=== PATIENT | female | born 1975 | race Caucasian/White ===

== ENCOUNTER 2022-09-19 08:13 | Emergency (ER) | payer OTHER, SELFPAY ==
[2022-09-19 08:26] VITALS: BP 146/82; PULSE 66; RESP 16; TEMP 36.8; O2SAT 99
--- NOTE | 2022-09-19 08:28 | ED.BACK ---
HPI - Back Pain/Injury General Chief Complaint: Back Pain/Injury Stated Complaint: Back Pain Time Seen by Provider: 09/19/22 08:30 Source: patient Mode of arrival: ambulatory Limitations: no limitations History of Present Illness HPI Narrative: Monica is a 47-year-old female patient presenting to the clinic today with complaints of left lower back pain x1 day. She reports she was bending over to buckle her son into the car seat yesterday and felt a pop in her back with and pain. She denies any radiation of pain down her legs. Does have pain with sitting and also when changing positions. Reports the pain is a sharp and aching pain. Rates pain currently at 9/10. Denies any saddle anesthesia or loss of bowel or bladder. She has not taken anything for pain this morning. Related Data Home Medications Medication Instructions Recorded Confirmed erenumab-aooe 140 mg/mL mg subcut 09/19/22 subcutaneous auto-injector (Aimovig Autoinjector) pantoprazole 20 mg tablet,delayed mg PO 09/19/22 release sumatriptan succinate 100 mg tablet mg PO 09/19/22 Allergies Allergy/AdvReac Type Severity Reaction Status Date / Time No Known Allergies Allergy Unverified 06/17/13 13:55 Review of Systems Review of Systems: Pertinent positives per HPI. Patient denies any fever, chills, rash, headache, visual changes, dizziness, cough, runny nose, sore throat, shortness of breath, chest pain, palpitations, nausea, vomiting, diarrhea, constipation, abdominal pain, or any urinary issues. PMFSH Comments At the time of my signature, I reviewed and agree with the nursing past medical, surgical, social, and family history. There is no relevant family history pertinent to the patient complaint. Exam Narrative: General: Well-developed, well nourished, in no apparent distress Head: Normocephalic, atraumatic. Cardio: Regular rate and rhythm, s1 and s2 normal, no murmur appreciated. Resp: Clear to auscultation bilaterally, no rhonchi, rales, wheezing or rubs. Musculoskeletal: No deformity, -tender to palpation over the left musculature of the low back, nontender to palpation over the lumbar spine or thoracic spine, straight leg test positive at approximately 70? on the left, bilateral lower muscle strength strong and equal, negative foot drop, pain with flexion and extension of the low back, grossly normal range of motion, peripheral pulse strong, no edema, no cyanosis, cautious gait and station Course Course Emergency Course: Portions of this record may have been created with voice recognition software. Level of Care: Express Care Visit Vital Signs Vital signs: Vital Signs Temperature 36.8 C 09/19/22 08:26 Pulse Rate 66 09/19/22 08:26 Respiratory Rate 16 09/19/22 08:26 Blood Pressure 146/82 H 09/19/22 08:26 Pulse Oximetry 99 09/19/22 08:26 Oxygen Delivery Room Air 09/19/22 08:26 Temperature 36.8 C 09/19/22 08:26 Pulse Rate 66 09/19/22 08:26 Respiratory Rate 16 09/19/22 08:26 Blood Pressure 146/82 H 09/19/22 08:26 Pulse Oximetry 99 09/19/22 08:26 Oxygen Delivery Room Air 09/19/22 08:26 Vital signs reviewed MDM - Back Pain/Injury MDM Narrative Medical decision making narrative: At the time of visit patient is resting comfortably on the exam table. I suspect patient has a low back strain. Will send in prescription for some naproxen and Flexeril. Sedation precautions were reviewed with the patient she voiced understanding. Work note given for 2 days. Supportive measures were discussed with the patient she voiced understanding of discharge instructions and agrees to treatment plan. Patient has not taken any medication this morning for pain so Toradol 60 mg IM was given Differential Diagnosis Differential diagnosis: Likely lumbar radiculopathy, sciatica, strain of lumbar region and other (Disc herniation) Discharge Plan Discharge Clinical Impression: Low back pain, Strain
[2022-09-19] MEDS: KETOROLAC (*BKC) 60 MG/2 ML VIAL IM (08:34)
== END 2022-09-19 09:04 | disposition home or self-care (01) ==
PROVIDERS: Emergency Provider Nurse Practitioner Family
DX: S39.012A Strain of muscle, fascia and tendon of lower back, initial encounter (principal); X50.9XXA Other and unspecified overexertion or strenuous movements or postures, initial encounter; K21.9 Gastro-esophageal reflux disease without esophagitis
CPT/HCPCS: 96372; 99213; G0463; J1885

== ENCOUNTER 2022-11-25 08:22 | Emergency (ER) | payer OTHER, SELFPAY ==
--- NOTE | 2022-11-25 08:33 | ED.GENADULT ---
HPI - General Adult General Chief complaint: Upper Respiratory Infection Stated complaint: Cough/Headache/Dental Pain Time Seen by Provider: 11/25/22 08:33 Source: patient Mode of arrival: ambulatory Limitations: no limitations History of Present Illness HPI narrative: 47-year-old female patient presents to [facility] with complaints of URI symptoms and jaw and facial pain. Patient states she started having a cough a couple of days ago that has developed into a chronic dry cough, feeling achy but denies chills or fevers. Denies any chest pain or shortness of breath. Patient recently was diagnosed with type 2 diabetes and most recent A1c was 6.3. Patient states she was recently put on metformin. Patient states she does have history of chronic migraines and has been trying to treat an ongoing headache since the symptoms started. Patient states she is only treated herself with high doses of vitamin-C denies any other [id number] medications for her symptoms. Patient states she has also developed a rash on her right-sided abdominal area. Patient states it does not itch or bother her. Related Data Home Medications Medication Instructions Recorded Confirmed erenumab-aooe 140 mg/mL 140 mg subcut DIRECTED 09/19/22 11/25/22 subcutaneous auto-injector (Aimovig Autoinjector) pantoprazole 20 mg tablet,delayed 20 mg PO DAILY 09/19/22 11/25/22 release sumatriptan succinate 100 mg tablet 100 mg PO DAILY 09/19/22 11/25/22 levothyroxine 175 mcg tablet 175 mcg PO DAILY 11/25/22 11/25/22 metformin 1,000 mg tablet 1,000 mg PO BID 11/25/22 11/25/22 trazodone 150 mg tablet,extended 150 mg PO DAILY 11/25/22 11/25/22 release 24 hr Allergies Allergy/AdvReac Type Severity Reaction Status Date / Time No Known Allergies Allergy Verified 11/25/22 08:36 Review of Systems Review of Systems: CONSTITUTIONAL: Denies fever, chills, or sweats. Positive body aches EYES: Denies visual changes, redness, or discharge. ENT: Denies rhinorrhea, positive congestion, sore throat, or otalgia. CARDIOVASCULAR: Denies chest pain, palpitations, or edema. RESPIRATORY: Positive cough, denies dyspnea. GASTROINTESTINAL: Denies abdominal pain, nausea, vomiting, or diarrhea. GENITOURINARY: Denies dysuria or hematuria. SKIN: Positive rash, denies itching. MUSCULOSKELETAL: Denies back pain, joint pain, or myalgia. NEUROLOGIC: Positive headache, denies numbness, or weakness. PSYCHIATRIC: Denies anxiety or depression. [facility] Past Medical History Medical History (Updated 11/25/22 @ 08:56 by DARSHAN Maddox) Graves disease Hypothyroidism Type 2 diabetes mellitus Surgical History Surgical History (Updated 11/25/22 @ 08:35 by DARSHAN Maddox) H/O: hysterectomy History of appendectomy Comments At the time of my signature I agree with nursing past medical history, surgical, social, and family history. There is no relevant family history pertinent to the presenting complaint. Exam Narrative: GENERAL: Well-appearing, well-nourished, and in no acute distress. HEAD: Normocephalic, atraumatic. EYES: PERRLA and EOMI. ENT: Nares with erythema and edema noted bilateral, no rhinorrhea or epistaxis. Mucous membranes moist. Posterior pharynx with no erythema, tonsillar enlargement, exudates or lesions present. Bilateral TMs with slight erythema but no bulging patient complained of pain. NECK: Supple. No lymphadenopathy CHEST: Clear to auscultation. No respiratory distress. Patient able talk in clear complete sentences. No tripoding noted. HEART: Regular rate and rhythm. No murmur heard. Normal peripheral pulses. ABDOMEN: Soft, nontender, nondistended, normal active bowel sounds. EXTREMITIES: Normal range of motion. No edema. SKIN: Warm, dry, patient has a fine exanthem type rash noted to the right quadrant of the abdomen NEURO: No focal deficits. Alert and oriented x3. Course Course Level of Care: Express Care Visit Reevalua
[2022-11-25 08:35] VITALS: BP 124/88; PULSE 72; RESP 16; TEMP 36.9; O2SAT 100
== END 2022-11-25 09:05 | disposition home or self-care (01) ==
PROVIDERS: Emergency Provider Nurse Practitioner Family
DX: J06.9 Acute upper respiratory infection, unspecified (principal); Z20.822 Contact with and (suspected) exposure to COVID-19; E03.9 Hypothyroidism, unspecified; E05.00 Thyrotoxicosis with diffuse goiter without thyrotoxic crisis or storm; E11.9 Type 2 diabetes mellitus without complications
CPT/HCPCS: 87081; 87426; 87880; 99213; C9803; G0463

== ENCOUNTER 2024-02-05 10:07 | Emergency (ER) | payer OTHER, SELFPAY ==
[2024-02-05 10:15] VITALS: BP 122/79; PULSE 89; RESP 17; TEMP 36.7; O2SAT 100
--- NOTE | 2024-02-05 10:17 | ED.URI ---
HPI - URI/Sore Throat General Chief Complaint: Upper Respiratory Infection Stated Complaint: Sore Throat Time Seen by Provider: 02/05/24 10:17 Source: patient, RN notes reviewed and old records reviewed Mode of arrival: ambulatory Limitations: no limitations History of Present Illness HPI Narrative: Patient presents with complaints of 2 day history of low-grade fever, sore throat, hoarse voice. She reports that pain is worse on the right side than the left. Pain radiates to the ears. Pain aggravated by swallowing. Has occasional cough, denies any runny nose. No shortness of breath. Has not needed any medications for her symptoms. No other concerns or complaints today Related Data Home Medications Medication Instructions Recorded Confirmed erenumab-aooe 140 mg/mL 140 mg subcut DIRECTED 09/19/22 02/05/24 subcutaneous auto-injector (Aimovig Autoinjector) sumatriptan succinate 100 mg tablet 100 mg PO DAILY 09/19/22 02/05/24 levothyroxine 175 mcg tablet 175 mcg PO DAILY 11/25/22 02/05/24 metformin 1,000 mg tablet 1,000 mg PO BID 11/25/22 02/05/24 trazodone 150 mg tablet,extended 150 mg PO DAILY 11/25/22 02/05/24 release 24 hr Allergies Allergy/AdvReac Type Severity Reaction Status Date / Time No Known Allergies Allergy Verified 02/05/24 10:12 Review of Systems Review of Systems: All systems reviewed & are unremarkable except as noted in HPI and below Constitutional: Constitutional: Reports no additional constitutional complaints and Reports fever(s) ENT: Reports system reviewed and no additional complaints, except as documented, Reports change in voice and Reports sore throat Cardiovascular: Cardiovascular: Reports no additional cardiovascular complaints Respiratory: Respiratory: Reports no additional respiratory complaints and Reports cough Gastrointestinal: Gastrointestinal: Reports no additional gastrointestinal complaints [facility] Past Medical History Medical History (Updated 02/05/24 @ 10:34 by Lisa Callejas APRN) Graves disease Hypothyroidism Type 2 diabetes mellitus Surgical History Surgical History H/O: hysterectomy History of appendectomy Comments At the time of my signature, I reviewed and agree with the nursing past medical, surgical, social, and family history. There is no relevant family history pertinent to the patient complaint. Exam Const: General: cooperative, no acute distress, alert and awake Orientation/consciousness: oriented to person, oriented to place and oriented to time HENMT: Head: normal to inspection Ears: TM's normal bilaterally Mouth: Yes moist mucous membranes Throat: abnormal tonsil bilateral exudates and hypertrophy 2+ and posterior oropharynx abnormal erythema Resp: Effort & Inspection: normal respiratory effort and able to speak in complete sentences Auscultation: clear to auscultation bilaterally, no crackles, no rales, no rhonchi and no wheezes Cardio: Palpation: normal PMI Rate: regular rate Rhythm: regular rhythm Heart sounds: S1 normal heart sound present and S2 normal heart sound present Neuro: General: oriented to person, oriented to place and oriented to time Cranial nerves: Yes CN's II-XII intact bilaterally Psych: Appearance: grossly normal Thought process: Normal thought process present Insight: Good insight present (Psych) Judgement: Good judgement present (Psych) Course Course Level of Care: Express Care Visit Vital Signs Vital signs: Vital Signs Temperature 98.1 F 02/05/24 10:15 Pulse Rate 89 02/05/24 10:15 Respiratory Rate 17 02/05/24 10:15 Blood Pressure 122/79 02/05/24 10:15 Pulse Oximetry 100 02/05/24 10:15 Oxygen Delivery Room Air 02/05/24 10:15 Temperature 98.1 F 02/05/24 10:15 Pulse Rate 89 02/05/24 10:15 Respiratory Rate 17 02/05/24 10:15 Blood Pressure 122/79 02/05/24 10:15 Pulse Oximetry 100 02/05/24 10:15 Oxygen
[2024-02-05 10:35] LABS: EDINFLUASCREEN Negative (Negative); EDINFLUBSCREEN Negative (Negative)
[2024-02-05 10:36] LABS: EDCOVIDSCREEN Negative (Negative)
[2024-02-05 10:36] LABS: EDSTREPNEGPOS1 Positive (Negative)
== END 2024-02-05 10:50 | disposition home or self-care (01) ==
PROVIDERS: Emergency Provider Nurse Practitioner Family
DX: J02.0 Streptococcal pharyngitis (principal); Z20.822 Contact with and (suspected) exposure to COVID-19; E05.00 Thyrotoxicosis with diffuse goiter without thyrotoxic crisis or storm; E03.9 Hypothyroidism, unspecified; E11.9 Type 2 diabetes mellitus without complications
CPT/HCPCS: 87426; 87804; 87880; 99213; G0463

== ENCOUNTER 2024-03-05 10:18 | Emergency (ER) | payer OTHER, SELFPAY ==
--- NOTE | 2024-03-05 10:20 | ECG_ITS ---
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
--- NOTE | 2024-03-05 10:20 | ED.DIZZY ---
HPI - Dizziness General Chief Complaint: Chest Pain Stated Complaint: High Heart Rate/Dizziness Time Seen by Provider: 03/05/24 10:19 Source: patient Mode of arrival: ambulatory Limitations: no limitations History of Present Illness HPI Narrative: Monica is a 48-year-old female patient presenting to the clinic today with complaints of high heart rate, dizziness, shortness of breath, palpitations, and chest heaviness. She reports the symptoms started 1-1.5 hours ago. States that she began feeling short of breath and noticed some palpitations. History hypothyroid, type 2 diabetes, and obesity. Denies any cardiac or pulmonary history. Highest heart rate according to the patient was 109 Related Data Home Medications Medication Instructions Recorded Confirmed erenumab-aooe 140 mg/mL 140 mg subcut DIRECTED 09/19/22 03/05/24 subcutaneous auto-injector (Aimovig Autoinjector) levothyroxine 175 mcg tablet 175 mcg PO DAILY 11/25/22 03/05/24 metformin 1,000 mg tablet 1,000 mg PO BID 11/25/22 03/05/24 trazodone 150 mg tablet,extended 150 mg PO DAILY 11/25/22 03/05/24 release 24 hr Allergies Allergy/AdvReac Type Severity Reaction Status Date / Time No Known Allergies Allergy Verified 03/05/24 10:22 Review of Systems Review of Systems: Pertinent positives per HPI. Patient denies any fever, chills, rash, headache, visual changes, dizziness, cough, runny nose, sore throat, nausea, vomiting, diarrhea, constipation, abdominal pain, or any urinary issues. PMFSH Past Medical History Medical History Graves disease Hypothyroidism Type 2 diabetes mellitus Surgical History Surgical History H/O: hysterectomy History of appendectomy Comments At the time of my signature, I reviewed and agree with the nursing past medical, surgical, social, and family history. There is no relevant family history pertinent to the patient complaint. Exam Narrative: General: Well-developed, well nourished, in no apparent distress Head: Normocephalic, atraumatic. Cardio: Regular rate and rhythm, s1 and s2 normal, no murmur appreciated. Resp: Clear to auscultation bilaterally, no rhonchi, rales, wheezing or rubs. Extremities: No deformity, no edema, no cyanosis, capillary refill less than 2 seconds, peripheral pulses palpable and strong. Integumentary: [place], warm, and dry, intact without lesion, no rashes. Course Course Emergency Course: Portions of this record may have been created with voice recognition software. Level of Care: Express Care Visit Vital Signs Vital signs: Vital signs reviewed Transfer Transfered to: [place] Transportation: ALS Transfer rationale: Chest pain, palpitations, sob, dizziness Accepting physician: Dr. Russ Transfer comments: Transported by [facility]. MDM - Dizziness MDM Narrative Medical decision making narrative: At the time of visit patient is resting comfortably on the exam table. Patient appears to be nontoxic. EKG: EKG shows sinus rhythm with heart rate of 72 beats per minute. Reading states moderate T-wave abnormality consider anterior ischemia Plan: Recommend transfer to the ER via EMS for further evaluation. Discussed this with the patient she agrees to transfer to the ER. Would like to be transfer to [place] ER. Contacted Dr. Russ at [place] ER-report was given for continuity of care and he accepts patient for transfer Differential Diagnosis Differential diagnosis: Likely adverse reaction to drug, benign paroxysmal positional vertigo, orthostatic hypotension, cerebrovascular accident, acute vestibular neuronitis, transient cerebral ischemia and other (non STEMI, STEMI, PE, dysrhythmia, pneumonia, COVID) ECG Data EKG #1: Attestation: I personally reviewed and interpreted this ECG as follows: ECG completion date: 03/05/24 ECG completion time: 10:31 Prior ECG tracings: not available for review Interpretation: EKG shows sinus rhythm with heart rate of 72 beats per minute. No ST elevation or depression noted. Reading- moderate T-wave abnormality with possible anterior ischemia. NV interval is 168 milliseconds, QRS duration 92 milliseconds, QT-QTC is 376-401 milliseconds, P-R-T axis 33 0 42 Discharge Plan Discharge Clinical Impression: Palpitations, Shortness of breath, Dizziness Chest pain Qualifiers: Chest pain type: unspecified Qualified Code(s): R07.9 - Chest pain, unspecified Patient Disposition: Acute Care Hospital Condition: Guarded Prognosis Prescriptions: No Action Aimovig Autoinjector 140 mg/mL auto-injector 140 mg SUBCUT DIRECTED levothyroxine 175 mcg Tablet 175 mcg PO DAILY metformin 1,000 mg Tablet 1,000 mg PO BID trazodone 150 mg Tablet Extended Release 24 Hr 150 mg PO DAILY Follow-up/Referrals: UNKNOWN,DOCTOR [Non-Staff] - Time of Disposition: 10:43 Quality NIHSS Nursing Documentation ED NIHSS nursing documentation: reviewed/agree
[2024-03-05 10:25] VITALS: BP 116/82; PULSE 87; RESP 20; TEMP 35.9; O2SAT 100
== END 2024-03-05 10:47 | disposition short-term general hospital (02) ==
PROVIDERS: Emergency Provider Nurse Practitioner Family
DX: R00.2 Palpitations (principal); R06.02 Shortness of breath; R42 Dizziness and giddiness; R07.9 Chest pain, unspecified; E05.00 Thyrotoxicosis with diffuse goiter without thyrotoxic crisis or storm; E03.9 Hypothyroidism, unspecified; E11.9 Type 2 diabetes mellitus without complications; E66.9 Obesity, unspecified; Z79.84 Long term (current) use of oral hypoglycemic drugs; Z68.35 Body mass index [BMI] 35.0-35.9, adult
CPT/HCPCS: 93005; 99215; G0463

== ENCOUNTER 2024-03-05 11:05 | Emergency (ER) | payer OTHER, SELFPAY ==
[2024-03-05] VITALS (8 sets, daily range): BP systolic 119–164; BP diastolic 82–108; PULSE 63–80; RESP 12–16; TEMP 36.4; O2SAT 98–100
--- NOTE | ~2024-03-05 | XR_ITS ---
EXAMINATION: XR chest 1V portable DATE: 03/05/2024 11:41 INDICATION: Chest pain. TECHNIQUE: A single frontal view of the chest was obtained. COMPARISON: Chest 2 views 06/03/2008 FINDINGS: Calcified left lung nodules and calcified left hilar lymph nodes are consistent with old gr anulomatous disease. No pleural effusion or pneumothorax. The heart size is normal. IMPRESSION: 1. No acute cardiopulmonary disease. Reviewed, dictated and finalized at location [facility]. [facility]
--- NOTE | 2024-03-05 11:12 | ECG_ITS ---
Test Date: 2024-03-05 11:07:36 Measurements Intervals [place] Rate: 61 P: 34 MA: 173 QRS: -7 QRSD: 98 T: 42 QT: 399 QTc: 403 Interpretive Statements SINUS RHYTHM INCOMPLETE RIGHT BUNDLE BRANCH BLOCK CONSIDER INFERIOR INFARCT, AGE INDETERMINATE T WAVE ABNORMALITY IN ANTERIOR LEADS- CONSIDER ISCHEMIA BASELINE ARTIFACT- I, III, AVR, AVL ABNORMAL ECG Compared to ECG 03/05/2024 10:31:39 NO SIGNIFICANT CHANGE Electronically Signed On 03-05-2024 11:45:07 STUDIO MODEL by Jesús Ferrer D.O.
[2024-03-05 11:24] LABS: Basophils Absolute Auto 0.1 K/mm3 (0.0-0.1); Basophils Percent Auto 0.7 % (0.2-1.2); Eosinophils Absolute Auto 0.3 K/mm3 (0-0.3); Eosinophils Percent Auto 3.5 % (0-4.4); Hematocrit 38.3 % (37.0-47.0); Hemoglobin 12.5 g/dL (12.0-15.0); Immature Granulocyte Absolute 0.02 K/mm3 (0.00-0.031); Immature Granulocyte Percent A 0.3 % (0-0.5); Lymphocytes Absolute Auto 1.96 K/mm3 (0.9-3.2); Lymphocytes Percent Auto 25.8 % (18.3-44.2); Mean Corpuscular HGB Conc 32.6 g/dl (32-36); Mean Corpuscular Hemoglobin 28.7 pg (26-34); Mean Corpuscular Volume 87.8 fl (80-100); Mean Platelet Volume 9.1 fl (7.4-10.4); Monocytes Absolute Auto 0.4 K/mm3 (0.1-0.6); Monocytes Percent Auto 5.8 % (2.6-8.5); Neutrophils Absolute Auto 4.9 K/mm3 (1.3-6.7); Neutrophils Percent Auto 63.9 % (45.5-73.1); Platelet Count Result 261 k/mm3 (150-375); Red Blood Count 4.36 M/mm3 (4.2-5.4); Red Cell Distribution Width 13.7 % (11.5-14.5); White Blood Count 7.6 K/mm3 (4.5-10.0)
[2024-03-05 11:37] LABS: Alanine Aminotransferase 17 U/L (6-35); Albumin Level 4.6 g/dL (3.5-5.1); Alkaline Phosphatase 57 U/L (38-126); Anion Gap 10 mmol/L (4-12); Aspartate Amino Transferase 23 U/L (14-36); Bilirubin,Total 0.4 mg/dL (0.2-1.3); Blood Urea Nitrogen 16 mg/dL (7-17); Calcium 9.7 mg/dL (8.4-10.2); Carbon Dioxide 26 mmol/L (22-30); Chloride 102 mmol/L (98-107); Estimated CRCL calculation 72 ml/min; Estimated Glomerular Filt Rate 53; Glucose 101 mg/dL (65-110); Potassium 3.7 mmol/L (3.4-5.0); Sodium 138 mmol/L (137-145)
[2024-03-05 11:48] LABS: NT Pro B Type Natriuretic Pept 62 pg/mL (19.9-100); Troponin I < 0.012 ng/mL (0.000-0.034)
[2024-03-05 11:49] LABS: Partial Thromboplastin Time 28.7 Seconds (22.3-36.8); Prothrombin Time 13.9 Seconds (11.1-14.7)
--- NOTE | 2024-03-05 12:37 | ED_ITS ---
HPI - Chest Pain General Chief Complaint: Chest Pain Stated Complaint: chest pain Time Seen by Provider: 03/05/24 12:00 History of Present Illness HPI narrative: 48-year-old female with history of diabetes, hypothyroidism presenting with palpitations. Over the last several weeks she has had several episodes of palpitations that last about 20 minutes. States that she often feels lig htheaded with some shortness of breath. No chest pain. States that today was most severe so she called her who took her to urgent care who advised she come to the ER. No fevers, cough, sore throat, abdominal pain, nausea vomiting, diarrhea, leg swelling. States she was treated for strep throat about a month ago. Related Data Home Medications Medication Instructions Recorded Confirmed erenumab-aooe 140 mg/mL 140 mg subcut DIRECTED 09/19/22 03/05/24 subcutaneous auto-injector (Aimovig Autoinjector) levothyroxine 175 mcg tablet 175 mcg PO DAILY 11/25/22 03/05/24 metformin 1,000 mg tablet 1,000 mg PO BID 11/25/22 03/05/24 trazodone 150 mg tablet,extended 150 mg PO DAILY 11/25/22 03/05/24 release 24 hr Allergies Allergy/AdvReac Type Severity Reaction Status Date / Time No Known Allergies Allergy Verified 03/05/24 10:22 Review of Systems Review of Systems: All systems reviewed & are unremarkable except as noted in HPI and below PMFSH Past Medical History Medical History Graves disease Hypothyroidism Type 2 diabetes mellitus Surgical History Surgical History H/O: hysterectomy History of appendectomy Exam Narrative: GENERAL: Nontoxic, no acute distress, pleasant cooperative HEAD: Normocephalic, atraumatic. EYES: PERRLA and EOMI. ENT: Nares clear, no rhinorrhea or epistaxis. Mucous membranes a bit dry NECK: Supple. CHEST: No respiratory distress. HEART: Regular rate and rhythm ABDOMEN: Soft, nondistended EXTREMITIES: Normal range of motion. No edema. SKIN: Warm, dry, no rash. NEURO: No focal deficits. Alert and oriented x3. PSYCH: Normal mood and affect. Course Vital Signs Vital signs: Vital Signs Temperature 97.6 F 03/05/24 11:05 Pulse Rate 65 03/05/24 11:05 Respiratory Rate 12 03/05/24 11:05 Blood Pressure 124/92 H 03/05/24 11:05 Pulse Oximetry 99 03/05/24 11:05 Oxygen Delivery Room Air 03/05/24 11:05 Temperature 97.6 F 03/05/24 11:05 Pulse Rate 67 03/05/24 17:33 Respiratory Rate 14 03/05/24 17:33 Blood Pressure 164/97 H 03/05/24 17:33 Pulse Oximetry 98 03/05/24 17:33 Oxygen Delivery Room Air 03/05/24 11:33 MDM - Chest Pain MDM Narrative Medical decision making narrative: 48-year-old female presenting with palpitations, chest heaviness, shortness of breath. Vitals within normal limits. Exam remarkable for the above. She does look a bit dry. EKG per my interpretation shows normal sinus rhythm, incomplete right bundle-branch block, no ST elevations or depressions. Blood work with slight bump in creatinine . No other abnormalities noted. UA is unremarkable. Troponins are undetectable x2. Patient complaining of a migraine. Migraine cocktail was given and she is now asking to go home which I think is reasonable. States her migraine has resolved. No further recurrence of palpitations. Discussed appropriate supportive care and trying to drink more hydrating fluids. Recommend close follow-up with her PCP. Appropriate return precautions given. Patient is a greeable this plan. Discharged in stable condition. Lab Data 03/05/24 11:19 03/05/24 11:19 Labs: Lab Results 03/05/24 03/05/24 03/05/24 Range/Units 11:19 14:05 14:54 WBC 7.6 (4.5-10.0) K/mm3 RBC 4.36 (4.2-5.4) M/mm3 Hgb 12.5 (12.0-15.0) g/dL Hct 38.3 (37.0-47.0) % MCV 87.8 (80-100) fl MCH 28.7 (26-34) pg MCHC 32.6 (32-36) g/dl RDW 13.7 (11.5-14.5) % Plt Count 261 (150-375) k/mm3 MPV 9.1 (7.4-10.4) fl Immature Gran % (Auto) 0.3 (0-0.5) % Neut % (Auto) 63.9 (45.5-73.1) % Lymph % (Auto) 25.8 (18.3-44.2) % [place] % (Auto) 5.8 (2.6-8.5) % Eos % (Auto) 3.5 (0-4.4) % Baso % (Auto) 0.7 (0.2-1.2) % Lymph # (Auto) 1.96 (0.9-3.2) K/mm3 [place] # (Auto) 0.4 (0.1-0.6) K/mm3 Eos # (Auto) 0.3 (0-0.3) K/mm3 Baso # (Auto) 0.1 (0.0-0.1) K/mm3 Abs Immat Gran (auto) 0.02 (0.00-0.031) K/mm3 Absolute Neuts (auto) 4.9 (1.3-6.7) K/mm3 Absolute Nucleated RBC 0.000 (0.0-0.012) K/mm3 Nucleated RBC % 0.0 (0.0-0.2) % PT 13.9 (11.1-14.7) Seconds INR 1.0 APTT 28.7 (22.3-36.8) Seconds D-Dimer < 0.27 (<0.48) ug/mL Sodium 138 (137-145) mmol/L Potassium 3.7 (3.4-5.0) mmol/L Chloride 102 (98-107) mmol/L Carbon Dioxide 26 (22-30) mmol/L Anion Gap 10 (4-12) mmol/L BUN 16 (7-17) mg/dL Creatinine 1.10 H (0.7-1.0) mg/dL Estim Creat Clear Calc 72 ml/min Estimated GFR 53 L (59 - ) Glucose 101 (65-110) mg/dL Calcium 9.7 (8.4-10.2) mg/dL Magnesium 2.1 (1.6-2.3) mg/dL Total Bilirubin 0.4 (0.2-1.3) mg/dL AST 23 (14-36) U/L ALT 17 (6-35) U/L Alkaline Phosphatase 57 (38-126) U/L Troponin I < 0.012 < 0.012 (0.000-0.034) ng/mL NT-Pro-B Natriuret Pep 62 (19.9-100) pg/mL Total Protein 8.0 (6.3-8.2) g/dL Albumin 4.6 (3.5-5.1) g/dL Urine Color Yellow (Yellow) Urine Appearance Cloudy H (Clear) Urine pH 7.5 (5.0-9.0) Ur Specific [place] 1.013 (1.001-1.035) Urine Protein Negative (Negative) mg/dL Urine Glucose (UA) Negative (Negative) mg/dL Urine Ketones Negative (Negative) mg/dL Ur Blood (Man) Negative (Negative) Urine Nitrate Negative (Negative) Urine Bilirubin Negative (Negative) Urine Urobilinogen 0.2 (<2.0) mg/dL Leukocyte Esterase Rfl Negative (Negative) KAVON/UL Urine RBC 3-5 H (0-2) /hpf Urine WBC 0-5 (0-3) /hpf Ur Squamous Epith Cells Occasional (Few) /hpf Urine Bacteria Rare /hpf Urine Casts 3-5 Critical Care Time Critical Care Time Critical Care Time: No Discharge Plan Discharge Clinical Impression: Palpitations, Dehydration Patient Disposition: Home, Self-Care Condition: Stable Instructions: Antibiotic Form, Dehydration (DC), Heart Palpitations (DC) Additional Instructions: Your workup today is reassuring. You do look slightly dehydrated. Please try to drink more hydrating fluids such as Gatorade, Powerade, Pedialyte. Please follow-up closely with your PCP. If your symptoms worsen or other concerning symptoms arise, please return to the ER. Prescriptions: No Action Aimovig Autoinjector 140 mg/mL auto-injector 140 mg SUBCUT DIRECTED levothyroxine 175 mcg Tablet 175 mcg PO DAILY metformin 1,000 mg Tablet 1,000 mg PO BID trazodone 150 mg Tablet Extended Release 24 Hr 150 mg PO DAILY Follow-up/Referrals: [facility] [Primary Care Provider] -
[2024-03-05 12:59] LABS: Magnesium 2.1 mg/dL (1.6-2.3)
[2024-03-05 13:00] LABS: D Dimer < 0.27 ug/mL (<0.48)
[2024-03-05] MEDS: SODIUM CHLORIDE 0.9% IV 1,000 ML 999 ML IV CONT (13:30)
--- NOTE | 2024-03-05 13:57 | ECG_ITS ---
Test Date: 2024-03-05 14:04:57 Measurements Intervals [place] Rate: P: 0 VA: 0 QRS: 0 QRSD: 0 T: 0 QT: 0 QTc: 0 Interpretive Statements SINUS BRADYCARDIA INCOMPLETE RIGHT BUNDLE BRANCH BLOCK CONSIDER INFERIOR INFARCT, AGE INDETERMINATE ST-T WAVE ABNORMALITY IN ANTERIOR LEADS- CONSIDER ISCHEMIA BASELINE ARTIFACT- I, II, AVR, AVL, AVF ABNORMAL ECG Compared to ECG 03/05/2024 11:07:36 HEART RATE HAS DECREASED Electronically Signed On 03-05-2024 14:24:05 [employer] by Jesús Ferrer D.O.
[2024-03-05] MEDS: ACETAMINOPHEN 500 MG TABLET 1000 MG PO (14:04)
--- NOTE | 2024-03-05 14:07 | PC.NURSE ---
pt made aware we need to obtain urine specimen. declining straight cath. pt will hit call light when she can provide urine specimen.
[2024-03-05 14:35] LABS: Troponin I < 0.012 ng/mL (0.000-0.034)
[2024-03-05] MEDS: ONDANSETRON INJ 4 MG/2 ML VIAL IV PUSH (15:01)
[2024-03-05 15:13] LABS: Add Urine Microscopic? YES; Appearance Urine Cloudy (Clear); Bacteria Urine Rare /hpf; Bilirubin Urine Negative (Negative); Blood Urine Negative (Negative); Color Urine Yellow (Yellow); Glucose Urine UA Negative (Negative); Ketones Urine Negative (Negative); Leukocyte Esterase Ur Negative LEU/UL (Negative); Nitrate Urine Negative (Negative); Protein Urine Negative (Negative); Specific Grav Ur 1.013 (1.001-1.035); Squamous Epithelial Cell Urine Occasional /hpf (Few); Urobilinogen Urine 0.2 mg/dL (<2.0); WBC Urine 0-5 /hpf (0-3); pH Urine 7.5 (5.0-9.0)
[2024-03-05] MEDS: KETOROLAC 15 MG/ML VIAL (*BKC) IV PUSH (16:26)
[2024-03-05] MEDS: PROCHLORPERAZINE EDISYLATE 10 MG/2 ML VIAL IV PUSH (16:27)
[2024-03-05] MEDS: diphenhydrAMINE HCl INJ 50 MG/ML VIAL 25 MG IV PUSH (16:27)
== END 2024-03-05 18:29 | disposition home or self-care (01) ==
PROVIDERS: Emergency Medicine; Emergency Provider Emergency Medicine
DX: R00.2 Palpitations (principal); E86.0 Dehydration; E11.9 Type 2 diabetes mellitus without complications; E03.9 Hypothyroidism, unspecified; Z90.710 Acquired absence of both cervix and uterus; Z79.899 Other long term (current) drug therapy; Z79.84 Long term (current) use of oral hypoglycemic drugs; I45.10 Unspecified right bundle-branch block; R94.31 Abnormal electrocardiogram [ECG] [EKG]
CPT/HCPCS: 36415; 71045; 80053; 81001; 83735; 83880; 84484; 85025; 85380; 85610; 85730; 93005; 96361; 96374; 96375; 99284; A9270; J0780; J1200; J1885; J2405; J7030

== ENCOUNTER 2025-01-22 08:42 | Emergency (ER) | payer OTHER, SELFPAY ==
[2025-01-22 09:00] VITALS: BP 123/90; PULSE 86; RESP 18; TEMP 36.5; O2SAT 100
--- NOTE | 2025-01-22 09:01 | ED.URI ---
HPI - URI/Sore Throat General Chief Complaint: Upper Respiratory Infection Stated Complaint: sore throat/right ear pain Patient presents to the [facility] with complaints of right ear pain with pain down the side of right side of that began 2-3 days ago. Patient reports she feels like this neck is swollen. Patient reports having increased pain last night and kept her up due to the ear pain. Denies increase in headache, nasal congestion, nasal drainage, difficulty or pain with swallowing, cough, shortness of breath, nausea, vomiting, or diarrhea. Related Data Home Medications ?Medication ?Instructions ?Recorded ?Confirmed ?Last Taken ?Type levothyroxine 175 mcg tablet 175 mcg PO DAILY 11/25/22 03/05/24 Unknown History phentermine resin complex PO 01/22/25 Unknown History Allergies Allergy/AdvReac Type Severity Reaction Status Date / Time No Known Allergies Allergy Verified 01/22/25 08:54 Review of Systems Constitutional: Constitutional: Reports as per HPI, Denies chills, Denies fatigue, Denies fever(s) and Denies weakness Eyes: Eyes: Reports no additional eye complaints ENT: Reports as per HPI, Denies dysphagia, Denies vertigo, Denies dizziness, Denies epistaxis, Denies nasal congestion and Denies sore throat Comments: Right ear pain, right sided neck pain Cardiovascular: Cardiovascular: Reports no additional cardiovascular complaints Respiratory: Respiratory: Reports as per HPI, Denies chest congestion, Denies cough, Denies dyspnea and Denies wheezing Gastrointestinal: Gastrointestinal: Reports as per HPI, Denies diarrhea, Denies nausea and Denies vomiting Genitourinary: Genitourinary: Reports no additional female genitourinary complaints Musculoskeletal: Musculoskeletal: Reports as per HPI and Denies myalgias Comments: right sided neck pain Integumentary/Breasts: Skin/Breast: Reports as per HPI, Denies erythema, Denies rash and Denies skin ulcer Neurologic: Reports as per HPI, Denies headache(s) and Denies weakness Psychiatric: Psychiatric: Reports no additional psychiatric complaints Endocrine: Endocrine: Reports no additional endocrine complaints Hematologic/Lymphatic: Hematologic/Lymphatic: Reports no additional hematologic/lymphatic complaints Allergic/Immunologic: Allergic/Immunologic: Reports no additional allergic/immunologic complaints PMFSH Past Medical History Medical History Graves disease Hypothyroidism Type 2 diabetes mellitus Surgical History Surgical History H/O: hysterectomy History of appendectomy Exam Const: General: healthy appearing and no acute distress Nutritional Appearance: well nourished Orientation/consciousness: patient oriented x3 Limitations: no limitations HENMT: Head: normal to inspection Ears: external ears normal and TM's abnormal bilaterally Face/Nose/Sinus: Normal external nose present and Normal nares present Face and sinus: normal facial exam and sinuses nontender Mouth: Yes Normal oral and palatal mucosa present, Yes lip normal and Yes moist mucous membranes Teeth and gingiva: dentition normal Throat: posterior oropharynx normal Other: right TM erythematous with mild bulging and cloudy fluid behind TM, significant loss of bony landmarks. Left TM normal Neck: Neck: normal visual inspection and no lymphadenopathy Other: mild tenderness right submandibular area Resp: Effort & Inspection: normal respiratory effort Auscultation: clear to auscultation bilaterally Cardio: Rate: regular rate Rhythm: regular rhythm Skin: General skin exam: normal color Rashes: no rashes Wounds: no wounds Neuro: General: patient oriented x3 Speech: normal speech Gait exam (Neuro): Normal gait present Psych: Mental Status: mental status grossly normal Affect: normal affect Attitude: cooperative Course Course Level of Care: Express Care Visit MDM - URI/Sore Throat MDM Narrative Medical decision making narrative: strep testing negative. No throat symptoms noted on exam. AOM positive right ear. The patient was evaluated by myself in the express care. History is obtained from patient who is an independent historian and physical exam was performed. Available medical records were reviewed at this time. Exam findings show no acute concerns or changes; patient is non-toxic appearing and is in no distress. Patient is appropriate for outpatient treatment and follow-up. I have evaluated and discussed social determinants of health with the patient that could potentially impact subsequent diagnosis and treatment plans. Differential diagnosis and treatment plan were discussed with the patient. Patient agrees with discussion and after shared medical decision making agrees with plan of care. All questions were answered to the patient's satisfaction. Differential Diagnosis Differential diagnosis: Likely upper respiratory infection, otitis media, sinusitis, viral infection, influenza and pharyngitis Medical Records Attestation: I reviewed the patient's medical records. Lab Data Attestation: I reviewed the patient's lab results. Lab results narrative: strep negative Discharge Plan Discharge Clinical Impression: Acute otitis media with effusion of right ear Patient Disposition: Home Condition: Stable Instructions: Antibiotic Form, Ear Infection (ED) Additional Instructions: take the antibiotics until gone. May use probiotics or yogurt daily to help with upset stomach /diarrhea with antibiotic use. May use Tylenol and ibuprofen to help with pain or fever. May use warm compresses to the outside of the ear to help with pain. Can also use Sudafed and Flonase nasal spray to help with symptoms associated with ear infection and help the ears drain. Follow-up with primary care physician if symptoms not improving or worsen. Patient Language: [place] Prescriptions: New amoxicillin 875 mg tablet 875 mg PO Q12H Qty: 20 0RF No Action phentermine resin complex PO levothyroxine 175 mcg Tablet 175 mcg PO DAILY Follow-up/Referrals: [facility] [Primary Care Provider, Medical] Time of Disposition: 09:20
[2025-01-22 09:11] LABS: EDSTREPNEGPOS1 Negative (Negative)
== END 2025-01-22 09:27 | disposition home or self-care (01) ==
PROVIDERS: Emergency Provider Nurse Practitioner Family
DX: H66.91 Otitis media, unspecified, right ear (principal); E03.9 Hypothyroidism, unspecified; E11.9 Type 2 diabetes mellitus without complications
CPT/HCPCS: 87880; 99213; G0463